=== PATIENT | female | born 1930 | race Caucasian/White ===

== ENCOUNTER 2017-06-11 19:13 | Inpatient (IN) | payer OTHER, MEDICARE ==
[2017-06-11 19:36] VITALS: BMI 21.9
[2017-06-11 20:56] LABS: BASO % 0.2 % (0-2.0); EOS % 0.8 % (0-4.5); HEMATOCRIT 32.7 % (32.4-45.2); HEMOGLOBIN 10.9 GM/dL (10.7-15.3); LYMPH % 12.4 % (8-40); MCH 30.5 pg (25.7-33.7); MCHC 33.4 g/dl (32.0-36.0); MEAN CELL VOLUME 91.4 fl (80-96); MEAN PLT VOLUME 7.3 fl (7.5-11.1); NEUT % 80.6 % (42.8-82.8); PLATELET COUNT 264 K/MM3 (134-434); RBC 3.58 M/mm3 (3.60-5.2); RDW 13.6 % (11.6-15.6)
[2017-06-11 21:01] LABS: VENOUS PC02 46.1 mmHg (38-52); VENOUS PH 7.39 (7.32-7.42); VENOUS PO2 26.1 mmHg (28-48)
[2017-06-11 21:10] LABS: INR 1.06 (0.82-1.09)
[2017-06-11 21:13] LABS: ACTIVATED PTT 25.3 SECONDS (26.9-34.4)
[2017-06-11 21:20] LABS: ALBUMIN 2.7 g/dl (3.4-5.0); ANION GAP 11 (8-16); BILIRUBIN,TOTAL 0.3 mg/dL (0.2-1.0); BLOOD UREA NITROGEN 15 mg/dL (7-18); CALCIUM 8.4 mg/dL (8.5-10.1); CHLORIDE 103 mmol/L (98-107); CO2 26 mmol/L (21-32); CREATININE 0.6 mg/dL (0.55-1.02); GLUCOSE,RANDOM 86 mg/dL (74-106); SGPT/ALT 13 U/L (12-78); SODIUM 140 mmol/L (136-145); TOT PROT 6.4 g/dl (6.4-8.2)
[2017-06-11 21:21] LABS: ALK PHOS 126 U/L (45-117); POTASSIUM 3.9 mmol/L (3.5-5.1); SGOT/AST 22 U/L (15-37)
--- NOTE | 2017-06-11 21:26 | PDOC ---
History of Present Illness - General History Source: Patient, Family, [facility] Records Exam Limitations: No Limitations - History of Present Illness Initial Comments: 06/11/17 21:34 The patient is an 86 year old female with significant past medical history of myasthenia gravis, seizures, hypertension, non-traumatic subarachnoid hemorrhage , bilateral hip fractures (from two separate falls) who was sent to the ED from [facility] for fever (102.6 in [facility], given Tylenol at 4pm today). Upon arrival to the ED, rectal temp was 101. The patient was said to have fallen out of her chair yesterday evening and sustained a bruise on her left cheek. She reports pain to the area but denies any headache/visual changes. The patient currently complains of chronic left knee pain and swelling. She denies any neck or back pain, focal deficits, or numbness or tingling in all extremities. PCP: Dr. Mckinley Montez <Mena Wallis - Last Filed: 06/11/17 22:47> <Lisa Callahan - Last Filed: 06/12/17 01:09> - General Chief Complaint: SIRS, Suspected/Possible Stated Complaint: FEVER Time Seen by Provider: 06/11/17 19:31 Past History <Mena Wallis - Last Filed: 06/11/17 22:47> - Past Medical History COPD: No - Suicide/Smoking/Psychosocial Hx Smoking History: Never smoked Have you smoked in the past 12 months: No Information on smoking cessation initiated: No Hx Alcohol Use: No Drug/Substance Use Hx: No Substance Use Type: None <Lisa Callahan - Last Filed: 06/12/17 01:09> - Past Medical History Allergies/Adverse Reactions: Allergies Allergy/AdvReac Type Severity Reaction Status Date / Time No Known Allergies Allergy Verified 06/11/17 21:28 Home Medications: Ambulatory Orders Acetaminophen 650 mg PO Q6H PRN 06/11/17 Ascorbate Calcium [Vitamin C] 500 mg PO DAILY 06/11/17 Atorvastatin Ca [Lipitor] 10 mg PO HS 06/11/17 Cholecalciferol (Vitamin D3) [Vitamin D3 -] 1,000 unit PO DAILY 06/11/17 Clomipramine HCl 50 mg PO TID 06/11/17 Escitalopram Oxalate [Lexapro -] 5 mg PO DAILY 06/11/17 Folic Acid 0.4 mg PO DAILY 06/11/17 Ibuprofen 400 mg PO Q6H PRN 06/11/17 Metoprolol Tartrate 25 mg PO BID 06/11/17 Multivit with Minerals No.55 [Centrum Flavor Burst Adult] 1 each PO DAILY Polyethylene Glycol 3350 [Clearlax] 17 gm PO DAILY 06/11/17 Pyridostigmine [place] [Mestinon] 60 mg PO TID 06/11/17 Ranitidine [Zantac -] 150 mg PO DAILY 06/11/17 Sennosides [Senna] 17.2 mg PO DAILY PRN 06/11/17 Review of Systems - Review of Systems Able to Perform ROS?: Yes Comments:: 06/11/17 21:35 CONSTITUTIONAL: Present: fever Absent: chills, diaphoresis, generalized weakness, malaise, loss of appetite HEENT: Absent: rhinorrhea, nasal congestion, throat pain, throat swelling, difficulty swallowing, mouth swelling, ear pain, eye pain, visual Changes CARDIOVASCULAR: Absent: chest pain, syncope, palpitations, irregular heart rate, lightheadedness , peripheral edema RESPIRATORY: Absent: cough, shortness of breath, dyspnea with exertion, orthopnea, wheezing, stridor, hemoptysis GASTROINTESTINAL: Absent: abdominal pain, abdominal distension, nausea, vomiting, diarrhea, constipation, melena, hematochezia GENITOURINARY: Absent: dysuria, frequency, urgency, hesitancy, hematuria, flank pain, genital pain MUSCULOSKELETAL: Present: knee pain SKIN: Present: pain on left cheek due to bruising Absent: rash, itching, pallor HEMATOLOGIC/IMMUNOLOGIC: Absent: easy bleeding, easy bruising, lymphadenopathy, frequent infections ENDOCRINE: Absent: unexplained weight gain, unexplained weight loss, heat intolerance, cold intolerance NEUROLOGIC: Absent: headache, focal weakness or paresthesias, dizziness, unsteady gait, seizure, mental status changes, bladder or bowel incontinence PSYCHIATRIC: Absent: anxiety, depression, suicidal or homicidal ideation, hallucinations. All Other Systems: Reviewed and Negative <Mena Wallis - Last Filed: 06/11/17 22:47> *Physical Exam - Vital Signs Last Vital Signs Temp Pulse Resp BP Pulse Ox 101.0 F H 85 18 136/68 92 L 06/11/17 20:14 06/11/17 20:14 06/11/17 20:14 06/11/17 19:15 06/11/17 19:15 - Physical Exam Comments: 06/11/17 21:44 GENERAL: Cachectic. Awake and alert. Follows directions. No acute distress. HEENT: Normocephalic, atraumatic. PERRLA, EOMI. No conjunctival pallor. Sclera are non- icteric. Moist mucous membranes. Oropharynx is clear. NECK: Supple. Full ROM. No JVD. Carotid pulses 2+ and symmetric, without bruits. No thyromegaly. No lymphadenopathy. CARDIOVASCULAR: Holosystolic murmur. Regular rate and rhythm. No rubs or gallops. Distal pulses are 2+ and symmetric. PULMONARY: No evidence of respiratory distress. Lungs clear to auscultation bilaterally. No wheezing, rales or rhonchi. ABDOMINAL: Soft. Non-tender. Non-distended. No rebound or guarding. No organomegaly. Normoactive bowel sounds. RECTAL: No decubitus ulcers. No thrombosed hemorrhoids. MUSCULOSKELETAL Normal range of motion at all joints. No bony deformities or tenderness. No CVA tenderness. EXTREMITIES: No cyanosis. No clubbing. No edema. No calf tenderness. SKIN: Abrasion on left lower mandible. Warm and dry. Normal capillary refill. No rashes. No jaundice. NEUROLOGICAL: Alert, awake, appropriate. Cranial nerves 2-12 intact. No deficits to light touch and temperature in face, upper extremities and lower extremities. No motor deficits in the in face, upper extremities and lower extremities. Normoreflexic in the upper and lower extremities. Normal speech. Toes are down-going bilaterally. Requires assistance with walking. PSYCHIATRIC: Cooperative. Good eye contact. Appropriate mood and affect. <Mena Wallis - Last Filed: 06/11/17 22:47> - Vital Signs Last Vital Signs Temp Pulse Resp BP Pulse Ox 101.0 F H 85 18 136/68 92 L 06/11/17 20:14 06/11/17 20:14 06/11/17 20:14 06/11/17 19:15 06/11/17 19:15 <Lisa Callahan - Last Filed: 06/12/17 01:09> Heart Score/ECG Review - ECG Intrepretation Comment:: 06/11/17 21:53 ECG obtained at 20:25 Normal sinus at 92 bpm Minimal voltage criteria for LVH <[facility] - Last Filed: 06/11/17 22:47> ED Treatment Course - LABORATORY CBC & Chemistry Diagram: 06/11/17 20:51 06/11/17 20:51 - ADDITIONAL ORDERS Additional order review: Laboratory Results 06/11/17 06/11/17 06/11/17 20:51 20:51 20:51 PT with INR INR PTT (Actin FS) VBG pH 7.39 POC VBG pCO2 46.1 POC VBG pO2 26.1 L Mixed VBG HCO3 27.3 H Sodium 140 Potassium 3.9 Chloride 103 Carbon Dioxide 26 Anion Gap 11 BUN 15 Creatinine 0.6 Creat Clearance w eGFR > 60 Random Glucose 86 Lactic Acid 1.3 Calcium 8.4 L Total Bilirubin 0.3 AST 22 ALT 13 Alkaline Phosphatase 126 H Troponin I Total Protein 6.4 Albumin 2.7 L 06/11/17 06/11/17 20:51 20:40 PT with INR 12.00 H INR 1.06 PTT (Actin FS) 25.3 L VBG pH POC VBG pCO2 POC VBG pO2 Mixed VBG HCO3 Sodium Potassium Chloride Carbon Dioxide Anion Gap BUN Creatinine Creat Clearance w eGFR Random Glucose Lactic Acid Calcium Total Bilirubin AST ALT Alkaline Phosphatase Troponin I < 0.02 Total Protein Albumin 06/11/17 20:51 RBC 3.58 L MCV 91.4 MCHC 33.4 RDW 13.6 MPV 7.3 L Neutrophils % 80.6 Lymphocytes % 12.4 Monocytes % 6.0 Eosinophils % 0.8 Basophils % 0.2 <[facility] - Last Filed: 06/11/17 22:47> - LABORATORY CBC & Chemistry Diagram: 06/11/17 20:51 06/11/17 20:51 - ADDITIONAL ORDERS Additional order review: Laboratory Results 06/11/17 06/11/17 06/11/17 20:51 20:51 20:51 PT with INR INR PTT (Actin FS) VBG pH 7.39 POC VBG pCO2 46.1 POC VBG pO2 26.1 L Mixed VBG HCO3 27.3 H Sodium 140 Potassium 3.9 Chloride 103 Carbon Dioxide 26 Anion Gap 11 BUN 15 Creatinine 0.6 Creat Clearance w eGFR > 60 Random Glucose 86 Lactic Acid 1.3 Calcium 8.4 L Total Bilirubin 0.3 AST 22 ALT 13 Alkaline Phosphatase 126 H Troponin I Total Protein 6.4 Albumin 2.7 L 06/11/17 06/11/17 20:51 20:40 PT with INR 12.00 H INR 1.06 PTT (Actin FS) 25.3 L VBG pH POC VBG pCO2 POC VBG pO2 Mixed VBG HCO3 Sodium Potassium Chloride Carbon Dioxide Anion Gap BUN Creatinine Creat Clearance w eGFR Random Glucose Lactic Acid Calcium Total Bilirubin AST ALT Alkaline Phosphatase Troponin I < 0.02 Total Protein Albumin 06/11/17 20:51 RBC 3.58 L MCV 91.4 MCHC 33.4 RDW 13.6 MPV 7.3 L Neutrophils % 80.6 Lymphocytes % 12.4 Monocytes % 6.0 Eosinophils % 0.8 Basophils % 0.2 - RADIOLOGY Radiology Studies Ordered: Category Date Time Status CHEST X-RAY PORTABLE* [RAD] Stat Radiology 06/11/17 20:10 Ordered <Lisa Callahan - Last Filed: 06/12/17 01:09> Medical Decision Making - Medical Decision Making 06/11/17 22:38 Microblog sent to [facility], awaiting call back. 06/11/17 22:47 Phone call returned by Tanya Adams and case was discussed. <Mena Wallis - Last Filed: 06/11/17 22:47> - Medical Decision Making 06/12/17 01:06 86-year-old female brought in by ambulance from [facility] for fever 126, for which she received Tylenol and facility. Review of systems reveals chronic left knee pain due to arthritis. She slipped off the wheelchair at the facility for and sustained a 1 cm abrasion to her left mandible. She has a mild leukocytosis, urine is negative, possible early infiltrate on chest x-ray, blood cultures and urine cultures pending. Patient will be tested for influenza. Patient admitted to [facility] [place] <Lisa Callahan - Last Filed: 06/12/17 01:09> *DC/Admit/Observation/Transfer - Attestations Scribe Attestion: 06/11/17 21:51 Documentation prepared by Mena Wallis, acting as medical donation professional for Lisa Callahan MD. <Mena Wallis - Last Filed: 06/11/17 22:47> - Discharge Dispostion Admit: Yes <Lisa Callahan - Last Filed: 06/12/17 01:09> Diagnosis at time of Disposition: Pulmonary infiltrates Fever Qualifiers: Fever type: due to other condition Qualified Code(s): R50.81 - Fever presenting with conditions classified elsewhere
[2017-06-11] MEDS ORDERED: ACETAMINOPHEN 325 MG TABLET (FP) ONE (21:29)
[2017-06-11] MEDS ORDERED: ACETAMINOPHEN 325 MG TABLET (FP) PO ONE ×2 (21:42→22:31)
[2017-06-11 22:13] LABS: URINE APPEARANCE CLEAR; URINE BILIRUBIN NEGATIVE (NEGATIVE); URINE BLOOD NEGATIVE (NEGATIVE); URINE COLOR YELLOW; URINE GLUCOSE (UA) NEGATIVE (NEGATIVE); URINE KETONE TRACE (NEGATIVE); URINE LEUK ESTERASE NEGATIVE (NEGATIVE); URINE NITRITE NEGATIVE (NEGATIVE); URINE PROTEIN NEGATIVE (NEGATIVE); URINE UROBILINOGEN NEGATIVE mg/dL (0.2-1.0)
[2017-06-12] MEDS ORDERED: SODIUM CHLORIDE 1,000 ML IV SCH (00:15)
--- NOTE | 2017-06-12 00:28 | HP ---
CHIEF COMPLAINT: fever PCP: Tc HISTORY OF PRESENT ILLNESS: This is an 86 year old female with a significant past medical history of myasthenia gravis, HTN, dementia who presented to the ED from [facility] for fever. Pt denies cough, fever, abdominal discomfort, N/V/D, dysuria. Daughter also reports that pt was fine this afternoon and has been her usual self. She denies cough, decreased appetite, AMS. ER course was notable for: (1) fever 101 (2) WBC 13, was 6.9 on 06/05 (3) CXR with ? L perihilar infiltrate Recent Travel: pt/family denies PAST MEDICAL HISTORY: myasthenia gravis, HTN, HLD, CVA, frequent falls, B/L hip fractures (separate falls), GI bleed while on blood thinners, Subarachnoid hemorrhage s/p fall PAST SURGICAL HISTORY: B/L hip ORIF R knee ORIF B/L cataract Social History: Smoking: dtr denies Alcohol: occ glass of wine Drugs: dtr denies Family History: mother age 86, CVA, had heart disease father age 84, CVA, had heart disease brother stomach CA sister alive, s/p renal CA, heart disease Allergies No Known Allergies Allergy (Verified 06/11/17 21:28) HOME MEDICATIONS: 3 Medication Instructions Recorded Acetaminophen 650 mg PO Q6H PRN 06/11/17 Ascorbate Calcium [Vitamin C] 500 mg PO DAILY 06/11/17 Atorvastatin Ca [Lipitor] 10 mg PO HS 06/11/17 Cholecalciferol (Vitamin D3) 1,000 unit PO DAILY 06/11/17 [Vitamin D3 -] Clomipramine HCl 50 mg PO TID 06/11/17 Escitalopram Oxalate [Lexapro -] 5 mg PO DAILY 06/11/17 Folic Acid 0.4 mg PO DAILY 06/11/17 Ibuprofen 400 mg PO Q6H PRN 06/11/17 Metoprolol Tartrate 25 mg PO BID 06/11/17 Multivit with Minerals No.55 1 each PO DAILY 06/11/17 [Centrum Flavor Burst Adult] Polyethylene Glycol 3350 [Clearlax] 17 gm PO DAILY 06/11/17 Pyridostigmine [place] [Mestinon] 60 mg PO TID 06/11/17 Ranitidine [Zantac -] 150 mg PO DAILY 06/11/17 Sennosides [Senna] 17.2 mg PO DAILY PRN 06/11/17 REVIEW OF SYSTEMS CONSTITUTIONAL: Present: fever Absent: chills, diaphoresis, generalized weakness, malaise, loss of appetite, weight change HEENT: Absent: rhinorrhea, nasal congestion, throat pain, throat swelling, difficulty swallowing, mouth swelling, ear pain, eye pain, visual changes CARDIOVASCULAR: Absent: chest pain, syncope, palpitations, irregular heart rate, lightheadedness , peripheral edema RESPIRATORY: Absent: cough, shortness of breath, dyspnea with exertion, orthopnea, wheezing, stridor, hemoptysis GASTROINTESTINAL: Absent: abdominal pain, abdominal distension, nausea, vomiting, diarrhea, constipation, melena, hematochezia GENITOURINARY: Absent: dysuria, frequency, urgency, hesitancy, hematuria, flank pain, genital pain MUSCULOSKELETAL: Absent: myalgia, arthralgia, joint swelling, back pain, neck pain SKIN: Absent: rash, itching, pallor HEMATOLOGIC/IMMUNOLOGIC: Absent: easy bleeding, easy bruising, lymphadenopathy, frequent infections ENDOCRINE: Absent: unexplained weight gain, unexplained weight loss, heat intolerance, cold intolerance NEUROLOGIC: Absent: headache, focal weakness or paresthesias, dizziness, unsteady gait, seizure, mental status changes, bladder or bowel incontinence PSYCHIATRIC: Absent: anxiety, depression, suicidal or homicidal ideation, hallucinations. PHYSICAL EXAMINATION Vital Signs - 24 hr 3 06/11/17 06/11/17 19:15 20:14 Temperature 98.0 F 101.0 F H Pulse Rate 80 Pulse Rate [ 85 Left] Respiratory 18 18 Rate Blood Pressure 136/68 O2 Sat by Pulse 92 L Oximetry (%) GENERAL: Awake, alert, and fully oriented, in no acute distress. HEAD: Normal with no signs of trauma. EYES: Pupils equal, round and reactive to light, extraocular movements intact, sclera anicteric, conjunctiva clear. No lid lag. EARS, NOSE, THROAT: Ears normal, nares patent, oropharynx clear without exudates. Moist mucous membranes. NECK: Normal range of motion, supple without lymphadenopathy, JVD, or masses. LUNGS: Breath sounds equal, clear to auscultation bilaterally. No wheezes, and no crackles. No accessory muscle use. HEART: Regular rate and rhythm, normal S1 and S2 without murmur, rub or gallop. ABDOMEN: Soft, nontender, not distended, normoactive bowel sounds, no guarding, no rebound, no masses. No hepatomegaly or splenomegaly. MUSCULOSKELETAL: Normal range of motion at all joints. No bony deformities or tenderness. No CVA tenderness. UPPER EXTREMITIES: 2+ pulses, warm, well-perfused. No cyanosis. No clubbing. No peripheral edema. LOWER EXTREMITIES: 2+ pulses, warm, well-perfused. No calf tenderness. No peripheral edema. NEUROLOGICAL: Cranial nerves II-XII intact. Normal speech. Normal gait. PSYCHIATRIC: Cooperative. Good eye contact. Appropriate mood and affect. SKIN: Warm, dry, normal turgor, no rashes or lesions noted, normal capillary refill. Laboratory Results - last 24 hr 3 06/11/17 06/11/17 06/11/17 20:40 20:51 20:51 WBC 13.0 H RBC 3.58 L Hgb 10.9 Hct 32.7 MCV 91.4 MCH 30.5 MCHC 33.4 RDW 13.6 Plt Count 264 MPV 7.3 L Neutrophils % 80.6 Lymphocytes % 12.4 Monocytes % 6.0 Eosinophils % 0.8 Basophils % 0.2 PT with INR 12.00 H INR 1.06 PTT (Actin FS) 25.3 L VBG pH POC VBG pCO2 POC VBG pO2 Mixed VBG HCO3 Sodium Potassium Chloride Carbon Dioxide Anion Gap BUN Creatinine Creat Clearance w eGFR Random Glucose Lactic Acid Calcium Total Bilirubin AST ALT Alkaline Phosphatase Troponin I < 0.02 Total Protein Albumin Urine Color Urine Appearance Urine pH Ur Specific [place] Urine Protein Urine Glucose (UA) Urine Ketones Urine Blood Urine Nitrite Urine Bilirubin Urine Urobilinogen Ur Leukocyte Esterase 3 06/11/17 06/11/17 06/11/17 20:51 20:51 20:51 WBC RBC Hgb Hct MCV MCH MCHC RDW Plt Count MPV Neutrophils % Lymphocytes % Monocytes % Eosinophils % Basophils % PT with INR INR PTT (Actin FS) VBG pH 7.39 POC VBG pCO2 46.1 POC VBG pO2 26.1 L Mixed VBG HCO3 27.3 H Sodium 140 Potassium 3.9 Chloride 103 Carbon Dioxide 26 Anion Gap 11 BUN 15 Creatinine 0.6 Creat Clearance w eGFR > 60 Random Glucose 86 Lactic Acid 1.3 Calcium 8.4 L Total Bilirubin 0.3 AST 22 ALT 13 Alkaline Phosphatase 126 H Troponin I Total Protein 6.4 Albumin 2.7 L Urine Color Urine Appearance Urine pH Ur Specific [place] Urine Protein Urine Glucose (UA) Urine Ketones Urine Blood Urine Nitrite Urine Bilirubin Urine Urobilinogen Ur Leukocyte Esterase 3 Urine Color Yellow 06/11/17 22:07 Urine Appearance Clear 06/11/17 22:07 Urine pH 5.0 (5.0-8.0) 06/11/17 22:07 Ur Specific [place] 1.018 (1.001-1.035) 06/11/17 22:07 Urine Protein Negative (NEGATIVE) 06/11/17 22:07 Urine Glucose (UA) Negative (NEGATIVE) 06/11/17 22:07 Urine Ketones Trace (NEGATIVE) H 06/11/17 22:07 Urine Blood Negative (NEGATIVE) 06/11/17 22:07 Urine Nitrite Negative (NEGATIVE) 06/11/17 22:07 Urine Bilirubin Negative (NEGATIVE) 06/11/17 22:07 Ur Leukocyte Esterase Negative (NEGATIVE) 06/11/17 22:07 ASSESSMENT/PLAN: 86yF with PMH myasthenia gravis, HTN, HLD, CVA, frequent falls, B/L hip fractures (separate falls), GI bleed while on blood thinners, SAH s/p fall who presented to the ED with fever. Sepsis secondary to pneumonia - Levofloxacin 750mg given in ED - NS @75cc/hr - lactic acid WNL - monitor vitals Myasthenia gravis - cont home mestinon and clomipramine - consider swallow eval to r/o silent aspiration HTN/HLD - cont home meds: Metoprolol and lipitor GERD/h/o GI bleed - will change protonix to ranitidine while on heparin SC for DVT PPX DVT PPX - heparin 5000u BID FEN - NS @ 75cc/hr - bmp in am - low sodium diet Dispo: pt currently requires inpatient management of her emergent condition. Visit type - Emergency Visit Emergency Visit: Yes ED Registration Date: 06/11/17 Care time: The patient presented to the Emergency Department on the above date and was hospitalized for further evaluation of their emergent condition. - New Patient This patient is new to me today: Yes Date on this admission: 06/11/17 - Critical Care Critical Care patient: No Hospitalist Screening - Colonoscopy Questionnaire Colonoscopy Questionnaire: Colonoscopy Questionnaire - Patient: 50 - 75 years old and never had a screening colonoscopy: No History of colon or rectal polyps, or CA: No History of IBD, Crohn's disease or UC: No History of abdominal radiation therapy as a child: No - Relative: 1 with colon or rectal CA, or polyps at age 60 or younger: Unknown Colon or rectal CA diagnosed at age 45 or younger: Unknown Multiple relatives with colon or rectal CA: Unknown - Outcome: Screening Result: Negative Screen
[2017-06-12] MEDS: PYRIDOSTIGMINE BROMIDE 60 MG TABLET PO SCH ×3 (05:37→22:26)
[2017-06-12] MEDS ORDERED: PATIENT'S OWN MEDICATION (NON-FORMULARY) (Clomipramine Hcl [Clomipramine Hcl] 50 MG) PO SCH (06:00)
[2017-06-12 08:08] LABS: ANION GAP 8 (8-16); BLOOD UREA NITROGEN 11 mg/dL (7-18); CALCIUM 7.5 mg/dL (8.5-10.1); CHLORIDE 106 mmol/L (98-107); CO2 28 mmol/L (21-32); CREATININE 0.5 mg/dL (0.55-1.02); GLUCOSE,RANDOM 80 mg/dL (74-106); MAGNESIUM 1.9 mg/dL (1.8-2.4); PHOSPHOROUS 2.3 mg/dL (2.5-4.9); POTASSIUM 3.4 mmol/L (3.5-5.1); SODIUM 142 mmol/L (136-145)
--- NOTE | 2017-06-12 08:35 | HP ---
Admitting History and Physical - Admission Chief Complaint: 86 y.o F was admitted from [facility] after having high fever, chills , SOB, hypoxemia and confusion History of Present Illness: SAH\ Dementia Myastenia Gravis HTN, HLD Sz Gait disorder, frequent falls, muscle weakness , muscle weakness GERD sacral ulcer stage 2 Limitations to Obtaining History: Dementia - Past Medical History [employer]: Yes: Dementia Cardiovascular: Yes: HTN, Hyperlipdemia ...: No Infectious Disease: No: AIDS, C-Diff, Herpes Zoster, HIV, MRSA, STD's, Tuberculosis, VREF, Other - Smoking History Smoking history: Never smoked Have you smoked in the past 12 months: No Aproximately how many cigarettes per day: 0 - Alcohol/Substance Use Hx Alcohol Use: No Home Medications - Allergies Allergies/Adverse Reactions: Allergies Allergy/AdvReac Type Severity Reaction Status Date / Time No Known Allergies Allergy Verified 06/11/17 21:28 - Home Medications Home Medications: Ambulatory Orders Acetaminophen 650 mg PO Q6H PRN 06/11/17 Ascorbate Calcium [Vitamin C] 500 mg PO DAILY 06/11/17 Atorvastatin Ca [Lipitor] 10 mg PO HS 06/11/17 Cholecalciferol (Vitamin D3) [Vitamin D3 -] 1,000 unit PO DAILY 06/11/17 Clomipramine HCl 50 mg PO TID 06/11/17 Escitalopram Oxalate [Lexapro -] 5 mg PO DAILY 06/11/17 Folic Acid 0.4 mg PO DAILY 06/11/17 Ibuprofen 400 mg PO Q6H PRN 06/11/17 Metoprolol Tartrate 25 mg PO BID 06/11/17 Multivit with Minerals No.55 [Centrum Flavor Burst Adult] 1 each PO DAILY Polyethylene Glycol 3350 [Clearlax] 17 gm PO DAILY 06/11/17 Pyridostigmine [place] [Mestinon] 60 mg PO TID 06/11/17 Ranitidine [Zantac -] 150 mg PO DAILY 06/11/17 Sennosides [Senna] 17.2 mg PO DAILY PRN 06/11/17 Family Disease History - Family Disease History Family History: Unable to Obtain Review of Systems Unable to obtain ROS, reason: Dementia Physical Examination Vital Signs: Vital Signs Temperature 97.9 F 06/12/17 06:38 Pulse Rate 87 06/12/17 06:38 Respiratory Rate 20 06/12/17 06:38 Blood Pressure 148/69 06/12/17 06:38 O2 Sat by Pulse Oximetry (%) 98 06/12/17 04:30 Constitutional: Yes: Anxious, Mild Distress, Thin. No: Diaphoresis Eyes: Yes: Conjunctiva Clear, EOM Intact, PERRL HENT: Yes: Atraumatic, Normocephalic. No: Drooling Neck: Yes: Supple, Trachea Midline. No: Lymphadenopathy Cardiovascular: Yes: Regular Rate and Rhythm. No: Bradycardia, Tachycardia, Bruit, JVD Respiratory: Yes: Regular, Cough, Diminished ([place]A), On Nasal O2, SOB. No: Rales , Rhonchi, Wheezes Gastrointestinal: Yes: Normal Bowel Sounds, Soft. No: Abdomen, Obese, Ascites ...Rectal Exam: Yes: Deferred Renal/: No: Anuria, Bladder Distention, CVA Tenderness - Left, CVA Tenderness - Right Breast(s): Yes: WNL Musculoskeletal: Yes: Muscle Weakness Extremities: No: Amputation, Calf Tenderness, Cold, Cyanosis Edema: No Peripheral Pulses WNL: Yes Neurological: Yes: Alert. No: Oriented, Aphasia, Dysarthria, Unresponsive ...Motor Strength: WNL Psychiatric: Yes: Alert, Oriented (x1) Labs: Laboratory Results - last 24 hr 06/11/17 06/11/17 06/11/17 20:40 20:51 20:51 WBC 13.0 H RBC 3.58 L Hgb 10.9 Hct 32.7 MCV 91.4 MCH 30.5 MCHC 33.4 RDW 13.6 Plt Count 264 MPV 7.3 L Neutrophils % 80.6 Lymphocytes % 12.4 Monocytes % 6.0 Eosinophils % 0.8 Basophils % 0.2 PT with INR 12.00 H INR 1.06 PTT (Actin FS) 25.3 L VBG pH POC VBG pCO2 POC VBG pO2 Mixed VBG HCO3 Sodium Potassium Chloride Carbon Dioxide Anion Gap BUN Creatinine Creat Clearance w eGFR Random Glucose Lactic Acid Calcium Phosphorus Magnesium Total Bilirubin AST ALT Alkaline Phosphatase Troponin I < 0.02 Total Protein Albumin Urine Color Urine Appearance Urine pH Ur Specific [place] Urine Protein Urine Glucose (UA) Urine Ketones Urine Blood Urine Nitrite Urine Bilirubin Urine Urobilinogen Ur Leukocyte Esterase 06/11/17 06/11/17 06/11/17 20:51 20:51 20:51 WBC RBC Hgb Hct MCV MCH MCHC RDW Plt Count MPV Neutrophils % Lymphocytes % Monocytes % Eosinophils % Basophils % PT with INR INR PTT (Actin FS) VBG pH 7.39 POC VBG pCO2 46.1 POC VBG pO2 26.1 L Mixed VBG HCO3 27.3 H Sodium 140 Potassium 3.9 Chloride 103 Carbon Dioxide 26 Anion Gap 11 BUN 15 Creatinine 0.6 Creat Clearance w eGFR > 60 Random Glucose 86 Lactic Acid 1.3 Calcium 8.4 L Phosphorus Magnesium Total Bilirubin 0.3 AST 22 ALT 13 Alkaline Phosphatase 126 H Troponin I Total Protein 6.4 Albumin 2.7 L Urine Color Urine Appearance Urine pH Ur Specific [place] Urine Protein Urine Glucose (UA) Urine Ketones Urine Blood Urine Nitrite Urine Bilirubin Urine Urobilinogen Ur Leukocyte Esterase 06/11/17 06/12/17 06/12/17 22:07 02:15 06:00 WBC RBC Hgb Hct MCV MCH MCHC RDW Plt Count MPV Neutrophils % Lymphocytes % Monocytes % Eosinophils % Basophils % PT with INR INR PTT (Actin FS) VBG pH POC VBG pCO2 POC VBG pO2 Mixed VBG HCO3 Sodium 142 Potassium 3.4 L Chloride 106 Carbon Dioxide 28 Anion Gap 8 BUN 11 Creatinine 0.5 L Creat Clearance w eGFR Random Glucose 80 Lactic Acid 1.6 Calcium 7.5 L Phosphorus 2.3 L Magnesium 1.9 Total Bilirubin AST ALT Alkaline Phosphatase Troponin I Total Protein Albumin Urine Color Yellow Urine Appearance Clear Urine pH 5.0 Ur Specific [place] 1.018 Urine Protein Negative Urine Glucose (UA) Negative Urine Ketones Trace H Urine Blood Negative Urine Nitrite Negative Urine Bilirubin Negative Urine Urobilinogen Negative Ur Leukocyte Esterase Negative Imaging - Results Chest X-ray: Image Reviewed (Preliminary -left UL infiltrate) EKG: Image Reviewed (SR, LVH) Problem List - Problems (1) Pulmonary infiltrates Assessment/Plan: NYA PNA Will continue IV Ab , and start IV Unasyn to cover anaerobic infection-? aspiration follow Bld Cx Repeat CXR Follow T Code(s): R91.8 - OTHER NONSPECIFIC ABNORMAL FINDING OF LUNG FIELD (2) HLD (hyperlipidemia) Assessment/Plan: Atorvastatin PO Code(s): E78.5 - HYPERLIPIDEMIA, UNSPECIFIED Qualifiers: Hyperlipidemia type: mixed hyperlipidemia Qualified Code(s): E78.2 - Mixed hyperlipidemia (3) Myasthenia gravis Assessment/Plan: PO Pyridostigmin Code(s): G70.00 - MYASTHENIA GRAVIS WITHOUT (ACUTE) EXACERBATION (4) HTN (hypertension) Assessment/Plan: Continue metoprolol PO Code(s): I10 - ESSENTIAL (PRIMARY) HYPERTENSION Qualifiers: Hypertension type: essential hypertension Qualified Code(s): I10 - Essential (primary) hypertension
[2017-06-12] MEDS ORDERED: POLYETHYLENE GLYCOL 3350 119 GM BTL PO PRN (10:00)
--- NOTE | 2017-06-12 10:49 | EKG ---
Test Reason : Blood Pressure : / mmHG Vent. Rate : 092 BPM Atrial Rate : 092 BPM P-R Int : 156 ms QRS Dur : 090 ms QT Int : 394 ms P-R-T Axes : 057 044 070 degrees QTc Int : 487 ms POOR DATA QUALITY, INTERPRETATION MAY BE ADVERSELY AFFECTED NORMAL SINUS RHYTHM MINIMAL VOLTAGE CRITERIA FOR LVH, MAY BE NORMAL VARIANT BORDERLINE ECG NO PREVIOUS ECGS AVAILABLE Confirmed by TURNER DUMONT, CAESAR ([id number]) on 06/12/2017 10:48:34 AM Referred By: Confirmed By:CAESAR TOMPKINS MD
[2017-06-12] MEDS: HEPARIN NA (PORCINE) 5,000 UNITS/ML 1ML VIAL SQ SCH ×2 (10:52→22:23)
[2017-06-12] MEDS: ESCITALOPRAM OXALATE 10 MG TABLET (FP) PO SCH (10:52)
[2017-06-12] MEDS: CHOLECALCIFEROL (VITAMIN D3) 1,000 UNIT TABLET (FP) PO SCH (10:53)
[2017-06-12] MEDS: MULTIVITAMINS THER W-MINERALS COMBO TABLET (FP) PO SCH (10:53)
[2017-06-12] MEDS: METOPROLOL TARTRATE 25 MG TABLET (FP) PO SCH ×2 (10:53→22:23)
[2017-06-12] MEDS: FOLIC ACID 1 MG TABLET (FP) PO SCH (10:53)
[2017-06-12] MEDS: ASCORBIC ACID 500 MG TABLET (FP) PO SCH (10:53)
[2017-06-12] MEDS: LIDOCAINE 5% TOPICAL PATCH TP SCH (10:54)
[2017-06-12] MEDS: AMPICILLIN NA/SULBACTAM NA 1.5 GM in SODIUM CHLORIDE 100 ML IVPB SCH ×2 (10:54→17:42)
[2017-06-12 11:33] LABS: BASO % 0.7 % (0-2.0); EOS % 5.3 % (0-4.5); HEMATOCRIT 28.6 % (32.4-45.2); HEMOGLOBIN 9.8 GM/dL (10.7-15.3); LYMPH % 18.1 % (8-40); MCH 31.6 pg (25.7-33.7); MCHC 34.2 g/dl (32.0-36.0); MEAN CELL VOLUME 92.3 fl (80-96); MEAN PLT VOLUME 7.6 fl (7.5-11.1); MONO % 8.9 % (3.8-10.2); PLATELET COUNT 230 K/MM3 (134-434); RDW 13.7 % (11.6-15.6); WHITE BLOOD COUNT 8.5 K/mm3 (4.0-10.0)
[2017-06-12] MEDS ORDERED: POTASSIUM CHLORIDE TABS 20 MEQ TABLET.ER (FP) PO ONE (15:45)
[2017-06-12] MEDS ORDERED: amLODIPine BESYLATE 5 MG TABLET (FP) PO ONE (15:45)
[2017-06-12] MEDS: DEXTROSE 5%-0.45% SALINE 1,000 ML IV SCH (15:55)
[2017-06-12] MEDS: ACETAMINOPHEN 325 MG TABLET (FP) PO PRN (18:35)
[2017-06-12] MEDS ORDERED: ATORVASTATIN CA 10 MG TABLET (FP) PO SCH (22:00)
[2017-06-12] MEDS ORDERED: LIDOCAINE PATCH REMOVAL MC SCH (22:00)
[2017-06-12] MEDS ORDERED: SENNOSIDES 8.6MG TABLET (FP) PO SCH (22:00)
[2017-06-13] MEDS: AMPICILLIN NA/SULBACTAM NA 1.5 GM in SODIUM CHLORIDE 100 ML IVPB SCH ×2 (01:11→09:24)
[2017-06-13] MEDS: PYRIDOSTIGMINE BROMIDE 60 MG TABLET PO SCH (06:40)
--- NOTE | 2017-06-13 07:43 | PN ---
Progress Note (short form) - Note Progress Note: Patient is awake, alert, confused. CXR PA/Lat-NAD WBC 8.5 Bld cx-negative. K 3.4-repleated. Mild anemia with HCT 28 noted -will follow at [facility]. Phos-mildly elevated Intake & Output 06/10/17 06/11/17 06/12/17 06/13/17 11:59 11:59 11:59 11:59 Intake Total 425 1100 Balance 425 1100 Weight 104 lb Vital Signs (72 hours) 06/11/17 06/11/17 06/12/17 19:15 20:14 00:11 Temperature 98.0 F 101.0 F H Pulse Rate 80 Pulse Rate [ 85 Left] Respiratory 18 18 Rate Blood Pressure 136/68 Blood Pressure [Left Arm] O2 Sat by Pulse 92 L 100 Oximetry (%) 06/12/17 06/12/17 06/12/17 01:38 04:30 06:38 Temperature 99.5 F 98.6 F 97.9 F Pulse Rate 82 87 Pulse Rate [ 85 Left] Respiratory 18 18 20 Rate Blood Pressure 144/61 148/69 Blood Pressure 121/82 [Left Arm] O2 Sat by Pulse 100 98 Oximetry (%) 06/12/17 06/12/17 06/12/17 08:00 10:00 12:00 Temperature 98.3 F Pulse Rate 97 H Pulse Rate [ Left] Respiratory 20 Rate Blood Pressure 144/66 Blood Pressure [Left Arm] O2 Sat by Pulse 95 95 Oximetry (%) 06/12/17 06/12/17 06/12/17 14:45 17:35 21:00 Temperature 97.4 F L 97.7 F Pulse Rate 74 77 Pulse Rate [ Left] Respiratory 20 20 20 Rate Blood Pressure 152/82 Blood Pressure [Left Arm] O2 Sat by Pulse 93 L Oximetry (%) 06/12/17 06/13/17 22:00 06:00 Temperature 98.6 F 98.7 F Pulse Rate 77 71 Pulse Rate [ Left] Respiratory 20 20 Rate Blood Pressure 148/70 150/66 Blood Pressure [Left Arm] O2 Sat by Pulse Oximetry (%) PE awake, alert Neck-no JCD, no bruits Lungs are Clear Heart S1S2 regular Abdomen soft, NT Current Active Problems Problem Status Onset Fever Acute HLD (hyperlipidemia) Acute HTN (hypertension) Acute Myasthenia gravis Acute Pulmonary infiltrates Acute Plan D/c to [facility] Spoke to daughter Lupis. Problem List - Problems (1) Pulmonary infiltrates Code(s): R91.8 - OTHER NONSPECIFIC ABNORMAL FINDING OF LUNG FIELD (2) HLD (hyperlipidemia) Code(s): E78.5 - HYPERLIPIDEMIA, UNSPECIFIED Qualifiers: Hyperlipidemia type: mixed hyperlipidemia Qualified Code(s): E78.2 - Mixed hyperlipidemia (3) Myasthenia gravis Code(s): G70.00 - MYASTHENIA GRAVIS WITHOUT (ACUTE) EXACERBATION (4) HTN (hypertension) Code(s): I10 - ESSENTIAL (PRIMARY) HYPERTENSION Qualifiers: Hypertension type: essential hypertension Qualified Code(s): I10 - Essential (primary) hypertension
--- NOTE | 2017-06-13 07:44 | DS ---
Physical Examination Vital Signs: Vital Signs Temperature 98.7 F 06/13/17 06:00 Pulse Rate 71 06/13/17 06:00 Respiratory Rate 20 06/13/17 06:00 Blood Pressure 150/66 06/13/17 06:00 O2 Sat by Pulse Oximetry (%) 93 L 06/12/17 21:00 Constitutional: Yes: No Distress, Calm, Thin Eyes: Yes: Conjunctiva Clear, EOM Intact HENT: Yes: Atraumatic, Normocephalic Neck: Yes: Supple, Trachea Midline Cardiovascular: Yes: Regular Rate and Rhythm. No: Bradycardia, Tachycardia Respiratory: Yes: CTA Bilaterally Gastrointestinal: Yes: Normal Bowel Sounds, Soft. No: Abdomen, Obese, Ascites ...Rectal Exam: No: Deferred, Erythema, Guaiac Negative Renal/: No: Anuria, Bladder Distention, CVA Tenderness - Left, CVA Tenderness - Right Breast(s): Yes: WNL Musculoskeletal: Yes: WNL Extremities: Yes: WNL Edema: No Integumentary: Yes: WNL Neurological: Yes: Alert, Oriented (x1-2). No: Aphasia, Ataxia, Dysarthria ...Motor Strength: WNL Psychiatric: Yes: Alert. No: Agitated, Suicidal Ideation Labs: CBC, BMP 06/12/17 06:00 06/12/17 06:00 Discharge Summary Reason For Visit: FEVER,PULMONARY INFILTRATE ON RADIOLOGIC EXAM Current Active Problems Fever (Acute) HLD (hyperlipidemia) (Acute) HTN (hypertension) (Acute) Myasthenia gravis (Acute) Pulmonary infiltrates (Acute) - Instructions Referrals: Mckinley Montez MD [Primary Care Provider] - Disposition: ALF FACILITY - Home Medications Comprehensive Discharge Medication List: Ambulatory Orders Acetaminophen 650 mg PO Q6H PRN 06/11/17 Ascorbate Calcium [Vitamin C] 500 mg PO DAILY 06/11/17 Atorvastatin Ca [Lipitor] 10 mg PO HS 06/11/17 Cholecalciferol (Vitamin D3) [Vitamin D3 -] 1,000 unit PO DAILY 06/11/17 Clomipramine HCl 50 mg PO TID 06/11/17 Escitalopram Oxalate [Lexapro -] 5 mg PO DAILY 06/11/17 Folic Acid 0.4 mg PO DAILY 06/11/17 Ibuprofen 400 mg PO Q6H PRN 06/11/17 Metoprolol Tartrate 25 mg PO BID 06/11/17 Multivit with Minerals No.55 [Centrum Flavor Burst Adult] 1 each PO DAILY Polyethylene Glycol 3350 [Clearlax] 17 gm PO DAILY 06/11/17 Pyridostigmine [place] [Mestinon] 60 mg PO TID 06/11/17 Ranitidine [Zantac -] 150 mg PO DAILY 06/11/17 Sennosides [Senna] 17.2 mg PO DAILY PRN 06/11/17
[2017-06-13] MEDS: DEXTROSE 5%-0.45% SALINE 1,000 ML IV SCH (09:22)
[2017-06-13] MEDS: LIDOCAINE 5% TOPICAL PATCH TP SCH (09:23)
[2017-06-13] MEDS: ACETAMINOPHEN 325 MG TABLET (FP) PO PRN (09:23)
[2017-06-13] MEDS: FOLIC ACID 1 MG TABLET (FP) PO SCH (09:24)
[2017-06-13] MEDS: ASCORBIC ACID 500 MG TABLET (FP) PO SCH (09:24)
[2017-06-13] MEDS: CHOLECALCIFEROL (VITAMIN D3) 1,000 UNIT TABLET (FP) PO SCH (09:24)
[2017-06-13] MEDS: HEPARIN NA (PORCINE) 5,000 UNITS/ML 1ML VIAL SQ SCH (09:24)
[2017-06-13] MEDS: ESCITALOPRAM OXALATE 10 MG TABLET (FP) PO SCH (09:25)
[2017-06-13] MEDS: METOPROLOL TARTRATE 25 MG TABLET (FP) PO SCH (09:25)
[2017-06-13] MEDS: MULTIVITAMINS THER W-MINERALS COMBO TABLET (FP) PO SCH (09:25)
[2017-06-13 10:44] VITALS: TEMP 98.2
[2017-06-13 13:12] VITALS: BP 146/67; PULSE 69
== END 2017-06-13 14:17 | DRG 194 ==
LOC: JER 19:13 → JERBED 22:48 → J7W 06-12 02:15
PROVIDERS: ADMIT Internal Medicine; ATTEND Internal Medicine
DX: J18.9 Pneumonia, unspecified organism (principal); R64 Cachexia; Z68.1 Body mass index [BMI] 19.9 or less, adult; I10 Essential (primary) hypertension; G70.00 Myasthenia gravis without (acute) exacerbation; E78.5 Hyperlipidemia, unspecified; K21.9 Gastro-esophageal reflux disease without esophagitis; F03.90 Unspecified dementia, unspecified severity, without behavioral disturbance, psychotic disturbance, mood disturbance, and anxiety; R09.02 Hypoxemia; R56.9 Unspecified convulsions; R91.8 Other nonspecific abnormal finding of lung field; S00.83XA Contusion of other part of head, initial encounter; W07.XXXA Fall from chair, initial encounter; Y92.098 Other place in other non-institutional residence as the place of occurrence of the external cause; D64.9 Anemia, unspecified; R26.9 Unspecified abnormalities of gait and mobility; M62.81 Muscle weakness (generalized); L89.152 Pressure ulcer of sacral region, stage 2; M17.12 Unilateral primary osteoarthritis, left knee; D72.828 Other elevated white blood cell count; E83.39 Other disorders of phosphorus metabolism; Z86.73 Personal history of transient ischemic attack (TIA), and cerebral infarction without residual deficits
CPT/HCPCS: 36415; 71045-TC-FY; 80048; 80053; 81003; 82803; 83605; 83735; 84100; 84484; 85025; 85610; 85730; 87040; 87086; 87804; 93005; 93010; 97116-GP; 97161-GP; 99285-25; J1644; J7030